=== PATIENT | female | born 1970 | race Caucasian/White ===

== ENCOUNTER → 2017-12-06 | Day surgery (SDC) | payer OTHER ==
[~2017-12-06] VITALS: Ht 162.6 cm; Wt 135.0 kg
[~2017-12-06] MED LIST: ACETAMINOPHEN 1000 MG/100 ML 100 ML IV ONE; ACETAMINOPHEN/HYDROcodone 325 MG/5 MG TAB PO PRN; APREPITANT 40 MG CAP ONE; BUPIVACAINE HCL PF 0.5% 30 ML VIAL ONE; CHLORHEXIDINE GLUCONATE 2 % 1 PACK (2 CLOTHS) TOPICAL PRN; DEXAMETHASONE SOD PHOS 4 MG/ML VIAL IV ONE; DO NOT ADM ANY ANTICOAGULANT DRUGS PRN; ESTR0.5T PO; FAMOTIDINE 20 MG/2 ML VIAL ONE; FENO48TA PO; GLYCOPYRROLATE 1 MG/5 ML SYRINGE IV PUSH ONE; INDO75CA3 PO; LACTATED RINGER'S 1000 ML INJ 1,000 ML IV ONE; LACTATED RINGER'S 1000 ML INJ 1,000 ML IV SCH; LACTATED RINGER'S 1000 ML IV PRN; LEVO75TA3 PO; LIDOCAINE HCL 1% PF 5 ML SYRINGE OTHER ONE; LOVA40TA PO; METOPROLOL TARTRATE 25 MG TAB PO PRN; MIDAZOLAM HCL 5 MG/5 ML VIAL ONE; MONT10TA4 PO; MORPHINE SULFATE 4 MG/ML INJ IV PUSH PRN; NAPR500 PO; ONDANSETRON HCL 4 MG/2 ML VIAL IV ONE; ONDANSETRON HCL 4 MG/2 ML VIAL IV PUSH PRN; OXYC1TAB63 PO; PHENYLEPH/NS 1000 MCG/10 ML SYR IV ONE; PHENYLEPHRINE HCL 10 MG/ML VIAL IV ONE; POVIDONE IODINE 5% (ANTISEPSIS KIT) 4 APPLICATIONS EACH NARE PRN; PROPOFOL 200 MG/20 ML AMP IV ONE; ROCURONIUM INJ 50 MG/5 ML SYRINGE IV PUSH ONE; SODIUM CHLORID 0.9% 500 ML IV PRN; SUCCINYLCHOLINE CHLORIDE 200 MG/10 ML VIAL IV ONE; TYLETAB34 PO; VANCOMYCIN 1250 MG/NS 250 ML (for 70-84 kg) IV SCH; ZOFR4TAB PO; ceFAZolin 2 GM PREMIX 50 ML IV SCH; ePHEDrine/NS 25 MG/5 ML SYRINGE IV ONE
[2017-12-06 11:41] LABS: AUTOMATED NEUTROPHIL # 4.7 TH/MM3 (1.8-7.7); BASOPHIL % 0.6 % (0.0-2.0); EOSINOPHIL # 0.2 TH/MM3 (0-0.4); HEMATOCRIT 41.6 % (35.0-46.0); HEMOGLOBIN 14.2 GM/DL (11.6-15.3); LYMPH % 30.3 % (9.0-44.0); LYMPHOCYTE # 2.4 TH/MM3 (1.0-4.8); MEAN CORPUSCULAR HEMOGLOBIN 31.6 PG (27.0-34.0); MEAN PLATELET VOLUME 9.6 FL (7.0-11.0); MONO % 9.1 % (0.0-8.0); MONOCYTE # 0.7 TH/MM3 (0-0.9); PLATELET COUNT 271 TH/MM3 (150-450); RED BLOOD COUNT 4.48 MIL/MM3 (4.00-5.30); WHITE BLOOD COUNT 8.1 TH/MM3 (4.0-11.0)
[2017-12-06 11:58] LABS: BICARBONATE 24.8 MEQ/L (21.0-32.0); CALCIUM 8.6 MG/DL (8.5-10.1); CREATININE 1.06 MG/DL (0.50-1.00)
--- NOTE | 2017-12-06 14:32 | RADRPT ---
EXAM DATE/TIME: 12/06/2017 13:37 [place] COMPARISON: No previous studies available for comparison. INDICATIONS : Excision left radial head. Prosthetic replacement. MEDICAL HISTORY : None. SURGICAL HISTORY : None. ENCOUNTER: Initial ACUITY: 1 day PAIN SCORE: Non-responsive. LOCATION: Left upper extremity FINDINGS: Excision of radial head replacement. On is anatomic. Fractures are not appreciated.. CONCLUSION: Anatomic alignment. Grupo Aguilar MD FACR on December 06, 2017 at 14:30 Board Certified Radiologist. This report was verified electronically.
--- NOTE | 2017-12-06 16:32 | MP ---
cc: Dustin Vaughn MD DATE OF OPERATION: 12/06/2017 PREOPERATIVE DIAGNOSIS: Comminuted displaced fracture, head of the left radius. POSTOPERATIVE DIAGNOSIS: Comminuted displaced fracture, head of the left radius. OPERATIVE PROCEDURE: Excision radial head left elbow and prosthetic replacement of the radial head. We used a Biomet radial head replacement with measurements as follows: Stem 7 mm. Head 24 x 10. SURGEON: Dr. Vaughn. ANESTHESIA: General. TECHNIQUE: After induction of general anesthesia, patient placed in supine position with the arm over a hand table. Left upper extremity thoroughly prepped with alcohol and ChloraPrep, draped in routine fashion. Tourniquet was not used because she has a short fat arm precluding use of tourniquet. Bony prominences were marked through the thick adipose tissue. A lateral incision was made starting from the lateral epicondyle, going proximally about 2-3 cm and then distally past the head of the radius, incision deepened to subcutaneous tissue. Fascia was delineated. The interval between the extensor radialis and the extensor communis was developed and deepened down. Fibers of the extensor radialis brevis were split and capsule opened. Blood was evacuated from the joint. Retractors were placed. There were 2 major fragments of the radial head and a couple of very small fragments. The fragments were put together and found to make a whole radial head. This was then used to measure, and a 24 mm head fit just about perfectly. Also, height was tested. It looked to be 8-9 mm. About 2-3 mm of bone removed from the neck of the radius to get a flat cut. The rasps were now used to 7 mm rasp. A trial implant was placed and a trial head was placed and motion testers, stability araceli. Everything looks good. Fluoroscopic images looked good. We now placed a 7 mm stem into the radius, getting a good fit. The 10 x 24 mm head was placed over it and screw tightened to get good fit. Position, alignment, stability all good. There was full flexion and extension without subluxation. There was no valgus or varus instability. Pronation, supination were good. Fluoroscopic images revealed good position, alignment and fixation. Wound was irrigated with saline solution, followed by closure. We used #1 Vicryl for closure of the fascia firmly with interrupted sutures. Subcutaneous tissue closed with 2-0 Vicryl, skin with 3-0, subcuticular Quill and Steri-Strips, dressings applied, Xeroform and 4 x 4's, and a posterior fiberglass splint was applied holding elbow in 90 degrees of flexion and neutral rotation. Patient tolerated the procedure well. COMPLICATIONS: None. POSTOPERATIVE CONDITION: Satisfactory. PROGNOSIS: Good. ESTIMATED BLOOD LOSS: 30-40 mL. MD RITA Osborne/RADHA , 03:05 PM , 04:31 PM
[2017-12-06 16:36] VITALS: BP 104/68; PULSE 86; RESP 16; TEMP 97.9; O2SAT 94
== END | disposition home or self-care (01) ==
LOC: HSDC 09:44
PROVIDERS: ATTEND Orthopaedic Surgery
DX: S52.122A Displaced fracture of head of left radius, initial encounter for closed fracture (principal); E78.5 Hyperlipidemia, unspecified; W01.0XXA Fall on same level from slipping, tripping and stumbling without subsequent striking against object, initial encounter
CPT/HCPCS: 01740; 24366; 64415; 73070; 76000; 80048; 85025; C1776; J0131; J0330; J0690; J1100; J2250; J2370; J2405; J3010; J3370; J7050; J7120; J8501